=== PATIENT | female | born 2005 | race Caucasian/White ===

== ENCOUNTER 2024-11-08 21:02 | Emergency (ER) | payer OTHER, SELFPAY ==
[2024-11-08 21:03] VITALS: BP 115/71; PULSE 105; RESP 16; TEMP 36.4; O2SAT 99
[2024-11-08] MEDS: Ondansetron 4 MG/2 ML Vial IV (22:35)
[2024-11-08] MEDS: 0.9% Normal Saline (1000mL) 1,000 ML 999 ML IV (22:35)
[2024-11-08 22:38] LABS: Absolute Lymphocyte Count 1.68 X10^3/uL (0.83-4.51); Absolute Neutrophil Count 6.4 X10^3/uL (2.0-7.7); Basophil# 0.03 X10^3/uL; Basophil% 0.3 % (0-1); Eosinophil# 0.12 X10^3/uL; Eosinophils% 1.4 % (0-5); Hematocrit 39.6 % (37-47); Hemoglobin 13.6 g/dL (12.0-15.0); Lymphocyte # 1.68 X10^3/ul (0.83-4.51); Lymphocyte % 19.5 % (19-41); Mean Corp Hgb Conc 34.3 g/dL (32-36); Mean Corpuscular Hgb 26.7 pg (27.0-32.0); Mean Corpuscular Volume 77.8 fL (81-99); Monocyte# 0.36 X10^3/uL; Monocyte% 4.2 % (0-10); NRBC Flagged by Analyzer 0 % (0-5); Neutrophil # 6.41 X10^3/uL (2.7-7.7); Neutrophil % 74.4 % (47-70); Platelet Count 174 K/mm3 (150-450); RBC Distribution Width CV 12.2 % (11.6-14.6); RBC Distribution Width SD 34.6 fl (35.1-43.9); Red Blood Count 5.09 M/mm3 (4.2-5.4); White Blood Count 8.6 K/mm3 (4.4-11.0)
[2024-11-08 22:57] LABS: Internal QC Validated? YES +Cl - CLEAR BKGD; Pregnancy, Serum, hCG Quali. NEGATIVE Negative
[2024-11-08 23:02] VITALS: BP 112/71; PULSE 73; RESP 12
[2024-11-08 23:03] LABS: Anion Gap 13 (5-15); BUN 13 mg/dL (4-19); BUN/Creat Ratio 18.6 RATIO (10-20); Calcium,Total 9.5 mg/dL (7.6-11.0); Carbon Dioxide 20.9 mmol/L (21.0-32.0); Chloride 103 mmol/L (98-108); Creatinine, Serum 0.71 mg/dL (0.70-1.20); EST Glomerular Filtration Rate 124 (>60); Glucose 112 mg/dL (70-99); Potassium 3.4 mmol/L (3.3-5.1); Sodium Level 137 mmol/L (133-145)
--- NOTE | 2024-11-09 00:19 | EDS_ITS ---
HPI History of Present Illness Chief Complaint: Seizure Informant: patient and EMS Narrative Narrative: 19-year-old female presenting with seizure-like activity. She states couple hours ago she started vomiting after feeling nauseated. No blood or coffee- ground emesis. No abdominal pain or diarrhea. No known fevers. No known sick contacts but she states she attends college and so she is around a lot of people and may have had sick contacts that she is unaware of. She states after vomiting for a while, she started getting lightheaded, and this led to anxiety, which led to numbness in her hands and feet but worse in her hands, nonlateralizing, and then she states she felt her arms and legs twitch several times. She was awake the whole time. There was no postictal period. She does not have a history of a seizure disorder that she knows of. She does have a history of some mental health issues such as anxiety, depression, PTSD. She had a similar episode a long time ago that she was told was triggered by pain, never put on seizure medications. [facility] Medical History (Updated 11/09/24 @ 00:[address] Carmine Pineda MD) PTSD (post-traumatic stress disorder) Anxiety Depression Medical History no medical history Home Medications ?Medication ?Instructions ?Recorded ?Last Taken ?Type ondansetron 8 mg disintegrating 8 mg PO Q8H PRN nausea and 11/09/24 Unknown Rx tablet vomiting #15 tabs Allergy/AdvReac Type Severity Reaction Status Date / Time No Known Allergies Allergy Verified 11/08/24 21:03 Family History no significant family his Surgical History no surgical history Social History Smoking Status: Never smoker ROS ROS ED Constitutional Constitutional ED: Denies chills or fever(s) Eyes Eyes: Denies change in vision or diplopia ENT ENT ED: Denies rhinorrhea or sore throat Cardiovascular Cardiovascular: Reports lightheadedness; Denies chest pain, palpitations or syncope Respiratory/Chest Respiratory/Chest: Denies cough or dyspnea Gastrointestinal Gastrointestinal: Reports nausea and vomiting; Denies abdominal pain or diarrhea Genitourinary Genitourinary ED: Denies dysuria or hematuria Musculoskeletal Musculoskeletal: Denies back pain or neck pain Integumentary Denies abscess or rash Neurologic Neurologic: Reports as per HPI, paresthesias RUE, RLE, LUE and LLE and seizure- like activity; Denies headache(s) or weakness Psychiatric Psychiatric: Reports anxiety; Denies suicidal thoughts EXAM Physical Exam Const Vital Signs: 11/08/24 21:03 11/08/24 23:02 Temperature 97.6 F L Temperature Source Temporal Pulse Rate 105 H 73 Respiratory Rate 16 12 Blood Pressure 115/71 112/71 Blood Pressure Mean 85 84 Pulse Ox 99 Oxygen Delivery Method Room Air Positive well nourished and well developed General Appearance ED: well developed and NAD HEENT Reports moist mucous membranes normocephalic and atraumatic Eyes PERRL and EOMs intact bilaterally Neck full ROM and supple Resp normal respiratory effort and clear to auscultation bilaterally Cardio regular rate, regular rhythm and no murmurs GI non-tender and non-distended Auscultation: normoactive bowel sounds Palpation: soft Back/Spine no CVA tenderness General Back: other FROM Extremity normal to inspection General Extremety ED: Negative for edema, pulses abnormal or tenderness General Extremity: Negative for edema or pulses abnormal Neuro oriented x3, CN's II-XII intact bilaterally and no sensory deficits noted Sensorium / Orientation: awake and alert Motor Exam: strength 5/5 throughout Psych mental status grossly normal Skin no rashes or lesions noted and no wounds MDM MDM MDM Narrative Medical decision making narrative: I reassured patient, I do not think this was true epileptic seizure activity since it was full body, brief, associated with no loss of consciousness or postictal period. I gave her a liter of IV fluids along with Zofran, she is feeling much better on reevaluation and asymptomatic tolerating oral fluids. is negative, labs are normal without any major electrolyte imbalances. My suspicion was that she had myoclonus, probably related to potentially some anxiety and transient electrolyte shifting that could have caused some or all of the symptoms including the paresthesias. I am not able to rule in or rule out nonepileptic seizure activity, as I discussed with her patients with mental health issues sometimes can have those as well. I reassured her, she is doing well with normal vital signs and tolerating oral fluids, possibly viral gastritis which we have seen a lot of in the community recently, prescribe Zofran and discharged with follow-up instructions and we discussed reasons to return she is comfortable with that plan. Lab Data Attestation: I reviewed the patient's lab results. Labs: Laboratory Results - last 24 hr 11/08/24 21:20 WBC 8.6 RBC 5.09 Hgb 13.6 Hct 39.6 MCV 77.8 L MCH 26.7 L MCHC 34.3 RDW Std Deviation 34.6 L RDW Coeff of Renetta 12.2 Plt Count 174 MPV 10.0 Immature Gran % (Auto) 0.200 Neut % (Auto) 74.4 H Lymph % (Auto) 19.5 Door % (Auto) 4.2 Eos % (Auto) 1.4 Baso % (Auto) 0.3 Absolute Neuts (auto) 6.4 Absolute Lymphs (auto) 1.68 Nucleated RBC % 0 Sodium 137 Potassium 3.4 Chloride 103 Carbon Dioxide 20.9 L Anion Gap 13 BUN 13 Creatinine 0.71 Est GFR (MDRD) Non-Af 124 BUN/Creatinine Ratio 18.6 Glucose 112 H Calcium 9.5 Serum , Qual NEGATIVE Discharge Plan Triage Chief Complaint: Seizure ED Provider: Carmine Pineda Dx/Rx/DC Orders Clinical Impression: Acute gastritis without bleeding, Myoclonus Instructions: ED Gastritis (Adult) Prescriptions: New ondansetron 8 mg tablet,disintegrating 8 mg PO Q8H PRN (Reason: nausea and vomiting) Qty: 15 0RF Primary Care Provider: Audrey Pickard NP Referrals: Audrey Pickard NP, [facility] [Primary Care Provider] - 3-5 Days if not improving Print Language: Marshallese Disposition Disposition: Home, Self Care
[2024-11-09 00:20] VITALS: BP 112/71; PULSE 73; RESP 12; TEMP 36.4; O2SAT 99
== END 2024-11-09 00:39 | disposition home or self-care (01) ==
PROVIDERS: Emergency Provider Emergency Medicine; PCP Nurse Practitioner Family; Visit Provider Emergency Medicine
DX: K29.00 Acute gastritis without bleeding (principal); G25.3 Myoclonus
CPT/HCPCS: 80048; 84703; 85025; 96361; 96374; 99283; A4216; J2405